=== PATIENT | male | born 1975 | race Caucasian/White ===

== ENCOUNTER → 2017-09-02 | Outpatient (CLI) | payer BC, OTHER ==
--- NOTE | 2017-09-02 12:46 | REP ---
LEFT FINGERS, FOUR VIEWS: HISTORY: Pain. There is no acute fracture or dislocation. The joint spaces are normal in appearance. IMPRESSION: There is no acute fracture or dislocation. Signed by Shiv Arriola MD 09/02/2017 01:35 P
== END ==
LOC: M WUC 10:33
PROVIDERS: ATTEND Physician Assistant
DX: M79.645 Pain in left finger(s) (principal)

== ENCOUNTER → 2017-12-01 | Outpatient (CLI) | payer OTHER | LOC: M WUC 10:43 | DX: M25.519 Pain in unspecified shoulder (principal) ==

== ENCOUNTER → 2018-09-21 | Outpatient (CLI) | payer OTHER | LOC: M WUC 09:33 | DX: M25.522 Pain in left elbow (principal) | CPT/HCPCS: 73080 ==

== ENCOUNTER 2018-10-10 09:14 | Outpatient (RCR) | payer OTHER | END 2018-10-21 | LOC: M OT 10-19 13:00 | DX: M77.12 Lateral epicondylitis, left elbow (principal) ==

== ENCOUNTER 2018-11-03 11:45 | Outpatient (RCR) | payer OTHER | END 2018-11-21 | LOC: M OT 11:45 | PROVIDERS: ATTEND Orthopaedic Surgery | DX: Z47.89 Encounter for other orthopedic aftercare (principal); M77.12 Lateral epicondylitis, left elbow ==

== ENCOUNTER → 2019-03-14 | Outpatient (CLI) | payer OTHER ==
--- NOTE | 2019-03-14 19:42 | REP ---
REASON: Knee pain after falling off a roof. PRIORS: None. FINDINGS: The compartments are symmetric and relatively well maintained. There is no acute fracture or destructive osseous lesion. Electronically Signed by Maximo Miranda DO 03/15/2019 11:56 A
== END ==
LOC: M WUC 15:02
PROVIDERS: ATTEND Physician Assistant
DX: M25.562 Pain in left knee (principal)

== ENCOUNTER 2019-03-20 13:45 | Outpatient (RCR) | payer OTHER | END 2019-03-21 | LOC: M OT 13:45 | PROVIDERS: ATTEND Physician Assistant | DX: M25.531 Pain in right wrist (principal) ==

== ENCOUNTER 2019-04-20 08:15 | Outpatient (RCR) | payer OTHER | END 2019-04-21 | LOC: M OT 08:15 | PROVIDERS: ATTEND Physician Assistant | DX: M77.11 Lateral epicondylitis, right elbow (principal) ==

== ENCOUNTER 2019-04-26 07:28 | Outpatient (RCR) | payer OTHER | END 2019-05-21 | LOC: M OT 07:28 | PROVIDERS: ATTEND Physician Assistant | DX: Z47.89 Encounter for other orthopedic aftercare (principal) ==

== ENCOUNTER → 2021-07-10 | Outpatient (CLI) | payer OTHER ==
--- NOTE | 2021-07-10 09:54 | REP ---
INDICATION: PAIN COMPARISON: None. TECHNIQUE: AP and frog-lateral views of the left hip FINDINGS: Examination is essentially age-appropriate. No overt osteoarthritic or significant degenerative changes are appreciated. No evidence for acute or healed injury. Surrounding soft tissues are normal. IMPRESSION: generalized age-related changes. <Electronically signed by Florian Hong > 07/10/21 1703
== END ==
LOC: M WUC 08:56
PROVIDERS: ATTEND Physician Assistant
DX: M25.551 Pain in right hip (principal)